=== PATIENT | female | born 2005 | race Two or more races ===

== ENCOUNTER 2025-02-13 06:17 | Emergency (ER) | payer MEDICAID, SELFPAY ==
[2025-02-13 06:18] VITALS: BMI 38.6
[2025-02-13 06:22] VITALS: BP 139/81; PULSE 57; RESP 16; TEMP 36.6; O2SAT 100
--- NOTE | 2025-02-13 06:35 | EDNOTE_ITS ---
ED Ear RME/HPI General Chief complaint: Ear Stated complaint: BILATERAL EAR PROBLEM Time Seen by Provider: 02/13/25 06:19 Arrival date/time: 02/13/25 06:17 19-year-old female presents to the emergency department today for complaint of bilateral ear pain worse on the left which began this morning. Patient reports that time she had ear pain she was also having abdominal pain she reports abdominal pain has completely resolved now she just has pain in the left ear Limitations: no limitations Related Data Previous Rx's ?Medication ?Instructions ?Recorded hydroxyzine pamoate 25 mg capsule 25 mg PO QID PRN itc marlon #30 caps 01/06/23 ibuprofen 600 mg tablet 600 mg PO TID PRN pain #30 t abs 03/05/23 hydrocodone 5 mg-acetaminophen 325 1 tab PO BID PRN pa in #8 tabs 10/30/23 mg tablet ibuprofen 800 mg tablet 800 mg PO TID PRN pain #30 t abs 10/30/23 Allergies Allergy/AdvReac Type Severity Reaction Status Date / Time diphenhydramine (From Allergy Severe Rash Verified 02/13/25 06:18 Benadryl) Review of Systems Review of Systems Systems Reviewed: All systems reviewed, normal except as documented Constitutional Constitutional: Reports system reviewed and no additional complaints, except as documented, Denies fever(s) and Denies headache(s) Eyes Eyes: Reports system reviewed and no additional complaints, except as documented and Denies blurry vision ENT Ears, Nose, Mouth, and Throat: Reports system reviewed and no additional complaints, except as documented, Reports otalgia, Denies headache(s), Denies nasal congestion and Denies nasal discharge Cardiovascular Cardiovascular: Reports system reviewed and no additional complaints, except as documented, Denies chest pain and Denies dyspnea Respiratory Respiratory: Reports system reviewed and no additional complaints, except as documented, Denies chest congestion, Denies cough and Denies dyspnea Gastrointestinal Gastrointestinal: Reports system reviewed and no additional complaints, except as documented and Denies abdominal pain Integumentary/Breasts Skin/Breast: Reports system reviewed and no additional complaints, except as documented and Denies rash Neurologic Neurologic: Reports system reviewed and no additional complaints, except as documented, Reports as per HPI and Denies headache(s) Past Medical History Past Medical History CARDIAC: Negative Congestive Heart Failure RESPIRATORY: Negative Chronic Obstructive Pulmonary Disease (COPD) GENITOURINARY: Negative Renal Disease ENDOCRINE: Negative Diabetes Mellitus Type 1 or Diabetes Mellitus Type 2 Social History SMOKING STATUS: Never smoker SUBSTANCE USE: does not use ED Exam General Limitations: Present no limitations General appearance: Present alert and in no apparent distress Head Head exam: Present atraumatic, normocephalic and normal inspection Eye Eye exam: Present normal appearance, PERRL and EOMI ENT ENT exam: Present mucous membranes moist and other (Bilateral cerumen impaction worse on the left) Neck Neck exam: Present normal inspection, full ROM and trachea midline Chest Chest inspection: Present normal inspection and symmetric chest wall rise Respiratory Respiratory exam: Present normal lung sounds bilaterally Cardiovascular Cardiovascular exam: Present regular rate, normal rhythm and normal heart sounds Abdominal Exam Abdominal exam: Present soft and normal bowel sounds; Absent distention, tenderness, guarding, rebound, rigidity, Seay's sign, Rovsing's sign or tenderness at McBurney's Point Abdominal tenderness: Absent RUQ or RLQ Extremities Exam Extremities exam: Present normal inspection and full ROM Back Exam Back exam: Present normal inspection and full ROM Neurological Exam Neurological exam: Present alert, oriented X3 and CN II-XII intact Psychiatric Psychiatric exam: Present normal affect and normal mood Skin Skin exam: Present warm, dry, intact and normal color Course Quality Measures none Vital Signs Vital signs: Vital Signs Temperature 97.8 F 02/13/25 06:22 Pulse Rate 57 L 02/13/25 06:22 Respiratory Rate 16 02/13/25 06:22 Blood Pressure 139/81 H 02/13/25 06:22 Pulse Oximetry (%) 100 02/13/25 06:22 Oxygen Delivery Method Room Air 02/13/25 06:22 O2 saturation 100% on room air with normal limits Procedures -ED Ear Wax Removal Both Ears: Results: Re-examined: cerumen removed completely TM Examination: TM(s) intact, normal appearance Ear Canal Exam: atraumatic Patient Tolerated Procedure: well Complications: no problems Technique: ear canal irrigated Ear Patient data External records reviewed:: [facility] previous records Clinical information provided by:: patient Social determinants that could affect healthcare access:: none Patient has the following chronic illnesses:: None How is presenting disease/condition affected by chronic disease/condition?: no chronic disease Evaluation data The following diagnostics were reviewed and interpreted by me:: other (specify) Lab and/or radiology exams considered but not ordered:: Consider not ordered Interpretation Summary: N/A Medications / Prescriptions Medications or Prescriptions considered but not ordered:: Given Medication administrations:: Given Consultations Consultation(s) initiated? (list below): No Diagnosis Ear Differential Diagnosis: otitis externa, otitis media, foreign body in ear and cerumen impaction Most likely diagnosis given after review of the tests above:: Cerumen infection bilateral Admission Indicated Admission indicated?: not indicated Admission Request Was there a request for admission?: No Disposition Plan Disposition Plan: Discharge Discharge Attestation Discharge Attestation: The patient and all family members were given an opportunity to ask questions and understood the discharge instructions. Discharge instructions specifically effects, indications for sooner follow up or return to the emergency department, and the expected course of current diagnosis. Patient condition: Stable Medical Decision Making MDM Narrative MDM Narrative: 19-year-old female presents to the emergency department today for complaint of bilateral ear pain worse on the left which began this morning. Patient reports that time she had ear pain she was also having abdominal pain she reports abdominal pain has completely resolved now she just has pain in the left ear On exam patient has bilateral cerumen impaction worse on the left Bilateral ears irrigated by myself copious amounts of earwax was removed patient reports I can now hear patient reports that she feels better At time of discharge patient reports no abdominal pain Patient discharged home in no distress to follow-up with primary care doctor in the next 24 to 48 hours and for any worsening symptoms to return to the ER immediately Differential Diagnosis Differential Diagnosis: Otitis media, otitis externa, eustachian tube dysfunction Medical Records Medical records reviewed: Yes I reviewed the patient's medical records. Discharge Plan Plan Patient Disposition: HOME (Self Care) Discharge Disposition comment: Stable Prescriptions/Referrals Prescriptions/Med Rec: No Action hydroxyzine pamoate 25 mg capsule 25 mg PO QID PRN (Reason: itching) Qty: 30 0RF ibuprofen 600 mg tablet 600 mg PO TID PRN (Reason: pain) Qty: 30 0RF ibuprofen 800 mg tablet 800 mg PO TID PRN (Reason: pain) Qty: 30 0RF hydrocodone-acetaminophen 5-325 mg tablet 1 tab PO BID MDD 10 PRN (Reason: pain) Qty: 8 0RF Problem List Clinical Impression: Bilateral impacted cerumen Patient/Caregiver Discharge Instructions Education Materials: Impacted Earwax Additional Instructions: Please follow up with your primary care doctor in the next 24-48hrs for any worsening symptoms return here immediately Print Language: Polish Stand Alone Forms: Aminata Award Info., Work/School Release, Patient Portal Info Letter PA/VARNISH SUPERVISOR Supervising Physician PA/VARNISH SUPERVISOR Supervising Physician: Dr. león
== END 2025-02-13 06:41 | disposition home or self-care (01) ==
LOC: SERX 06:41
PROVIDERS: Emergency Provider Emergency Medicine
DX: H61.23 Impacted cerumen, bilateral (principal)
CPT/HCPCS: 69209; 99283

== ENCOUNTER 2025-05-06 11:12 | Emergency (ER) | payer MEDICAID, SELFPAY ==
[2025-05-06] VITALS (8 sets, daily range): BP systolic 116–133; BP diastolic 53–77; PULSE 60–70; RESP 16–19; TEMP 36.4–37; O2SAT 95–100; BMI 42.9
--- NOTE | 2025-05-06 11:30 | XR_ITS ---
Examination: Abdomen sonogram, Limited Date and time of exam: May 06, 2025 1136 hours INDICATIONS: Right upper abdominal pain beginning 2:00 AM this morning Technique: Real-time adan scale transabdominal sonographic images of the upper abdomen obtained. Findings: Gallbladder sludge, negative for gallstones, normal gallbladder wall. Normal common bile duct 0.4 cm Pancreatic head 3.2 cm Liver 14.4 cm mildly lobular contour no focal liver lesions Normal hepatopedal portal venous flow Patent IVC IMPRESSION: Gallbladder sludge, negative for cholelithiasis, negative for cholecystitis Suspect primary hepatocellular disease
--- NOTE | 2025-05-06 11:31 | PD.EDRME ---
Rapid Medical Screening Exam RME Arrival date/time: 05/06/25 11:12 19-year-old female with no known medical history presents to the emergency room with a chief complaint of bilateral pelvic 10 out of 10 pain as well as some right upper quadrant abdominal tenderness x 2 days I have greeted and performed a focused initial assessment of this patient. A comprehensive ED assessment and evaluation of the patient, analysis of all test results, and completion of the medical decision making process will be conducted by additional ED providers. Chief Complaint: Abdominal Pain Time Seen by Provider: 05/06/25 11:21 Vital signs: Vital Signs Temperature 98.2 F 05/06/25 11:22 Pulse Rate 70 05/06/25 11:22 Respiratory Rate 18 05/06/25 11:22 Blood Pressure 127/73 05/06/25 11:22 Pulse Oximetry (%) 98 05/06/25 11:22 Oxygen Delivery Method Room Air 05/06/25 11:22 Vital signs reviewed by provider: Yes
[2025-05-06 11:55] LABS: Basophils # (Auto) 0.0 Thou/mm3 (0.0-0.2); Basophils % (Auto) 0 % (0-2.5); Eosinophils # (Auto) 0.1 Thou/mm3 (0.0-0.5); Eosinophils % (Auto) 1 % (0-10); Hematocrit 37.1 % (36.0-46.0); Hemoglobin 12.2 g/dL (12.0-16.0); Immature Granulocytes Auto 0.03 Thou/mm3 (0.00-0.00); Lymphocytes # (Auto) 2.0 Thou/mm3 (1.0-4.8); Lymphocytes % (Auto) 18 % (10-50); Mean Corpuscular HGB Conc 32.9 g/dl (31.0-37.0); Mean Corpuscular Hemoglobin 28.4 pg (25.0-35.0); Mean Corpuscular Volume 86 fL (80-100); Monocytes # (Auto) 0.6 Thou/mm3 (0.0-0.8); Monocytes % (Auto) 6 % (0-12); Neutrophils # (Auto) 8.3 Thou/mm3 (1.8-7.7); Neutrophils % (Auto) 75 % (37-80); Nucleated Red Blood Cell # 0.00 Thou/mm3 (0.00-0.00); Nucleated Red Blood Cell % 0 /100 WBC (0); Platelet Count 273 Thou/mm3 (140-440); RDW Standard Deviation 43.9 fL (36.4-46.3); Red Blood Count 4.30 Miln/mm3 (4.00-5.20); White Blood Count 11.0 Thou/mm3 (3.6-11.0)
[2025-05-06 12:11] LABS: Alanine Aminotransferase 27 U/L (10-49); Albumin, Serum 4.5 gm/dL (3.5-5.0); Albumin/Globulin Ratio 1.6 (1.2-2.2); Alkaline Phosphatase 83 U/L (46-116); Anion Gap 10 (7-16); Aspartate Amino Transferase 23 U/L (0-34); BUN/Creatinine Ratio 15 Ratio (12-20); Bilirubin,Total 1.9 mg/dL (0.3-1.2); Blood Urea Nitrogen 12 mg/dL (9-23); Calcium 9.7 mg/dL (8.3-10.6); Calcium (Corrected) 9.7 mg/dL (8.5-10.1); Carbon Dioxide 26.9 mMol/L (20.0-31.0); Chloride 105 mMol/L (98-107); Creatinine (Component) 0.8 mg/dL (0.6-1.3); Estimated Creatinine Clearance 137.3 mL/min (>60); Globulin 2.8 gm/dL (2.3-3.5); Glucose 81 mg/dL (74-106); Lipase 27 U/L (12-53); Osmolality,Calculated 281 (275-295); Potassium 4.6 mMol/L (3.4-5.1); Sodium 142 mMol/L (136-145); Total Protein 7.3 gm/dL (5.7-8.2); eGFR > 60 See Note
[2025-05-06 12:23] LABS: Collection Type, Urine Clean Catch
[2025-05-06 12:44] LABS: Bacteria,Urine Rare; Bilirubin,Urine Negative (Negative); Blood,Urine Negative (Negative); Clarity,Urine Clear (Clear/Hazy); Color,Urine Yellow (Lt Yel-Yel); Glucose, Urine Negative (Negative); Ketones,Urine 2+ (Negative); Leukocyte Esterase,Urine Negative (Negative); Nitrite,Urine Negative (Negative); PH,Urine 6.0 (5.0-7.0); Protein,Urine Trace (Neg - Trace); RBC,Urine 2 /hpf (0-3); Specific Gravity,Urine 1.034 (1.001-1.035); Squamous Epithelial Cell,Urine 3 /hpf (0-5); Urobilinogen,Urine Negative mg/dL (0.0-1.0); WBC,Urine 2 /hpf (0-5)
[2025-05-06 12:50] LABS: HCG Qualitative,Urine Negative
--- NOTE | 2025-05-06 13:37 | EDNOTE_ITS ---
ED Abdominal Pain RME/HPI General Chief Complaint: Abdominal Pain Stated complaint: pelvic pain and right shoulder pain since 2am Time seen by provider: 05/06/25 11:21 Arrival date/time: 05/06/25 11:12 RME / HPI RME / HPI narrative: 05/06/25 11:12 19-year-old female with no known medical history presents to the emergency room with a chief complaint of bilateral pelvic 10 out of 10 pain as well as some right upper quadrant abdominal tenderness x 2 days I have greeted and performed a focused initial assessment of this patient. A comprehensive ED assessment and evaluation of the patient, analysis of all test results, and completion of the medical decision making process will be conducted by additional ED providers. DR. MATHEW TIAN ED EVALUATION 19 year old female with no stated medical history presents to the ED for evaluation of abdominal pain beginning intermittently yesterday evening and worsening at 02:00 AM today. Described as sharp stabbing in sensation that is located most across lower abdomen, rating as moderate. Reportedly went to sleep and woke up at 08:00AM with the pain radiating to her right upper quadrant and right shoulder which she described as a soreness sensation. Denies associated nausea or vomiting though states since arriving to the ED she is beginning to feel nauseated. Denies fevers, chills, chest pain, cough, shortness of breath, diarrhea, constipation, or urinary symptoms. LMP 04/14/2025, denies . Related Data Previous Rx's ?Medication ?Instructions ?Recorded hydroxyzine pamoate 25 mg capsule 25 mg PO QID PRN itc marlon #30 caps 01/06/23 ibuprofen 600 mg tablet 600 mg PO TID PRN pain #30 t abs 03/05/23 hydrocodone 5 mg-acetaminophen 325 1 tab PO BID PRN pa in #8 tabs 10/30/23 mg tablet ibuprofen 800 mg tablet 800 mg PO TID PRN pain #30 t abs 10/30/23 acetaminophen 300 mg-codeine 30 mg 2 tab PO Q8H PRN pa in #20 tabs 05/06/25 tablet ondansetron 4 mg disintegrating 4 mg PO TID PRN nausea and 05/06/25 tablet vomiting 30 days #10 tabs Allergies Allergy/AdvReac Type Severity Reaction Status Date / Time diphenhydramine (From Allergy Severe Rash Verified 05/06/25 11:15 Benadryl) Review of Systems Review of Systems Systems Reviewed: All systems reviewed, normal except as documented Past Medical History Past Medical History CARDIAC: Negative Congestive Heart Failure RESPIRATORY: Negative Chronic Obstructive Pulmonary Disease (COPD) GENITOURINARY: Negative Renal Disease ENDOCRINE: Negative Diabetes Mellitus Type 1 or Diabetes Mellitus Type 2 Social History SMOKING STATUS: Never smoker SUBSTANCE USE: does not use ED Exam Narrative Physical exam: See MDM Course Quality Measures none Orders Category Date Time Status CT Screening NOW Care 05/06/25 13:[address] abdomen pelvis w con Stat Exams 05/06/25 13:40 Completed US gall bladder Stat Exams 05/06/25 11:30 Completed US pelvic complete Stat Exams 05/06/25 14:57 Completed US transvaginal Stat Exams 05/06/25 17:59 Completed CBC Stat Lab 05/06/25 11:36 Completed CMP [Comprehensive Metabolic Panel] Stat Lab 05/06/25 11:36 Completed Chlamydia/GC/TV - PCR Stat Lab 05/06/25 12:00 Completed HCG Qualitative,Urine Stat Lab 05/06/25 12:00 Completed Lipase Stat Lab 05/06/25 11:36 Completed UA [Urinalysis] Stat Lab 05/06/25 12:00 Completed Urine Culture Stat Lab 05/06/25 12:00 Received Acetaminophen Ivpb [Ofirmev Inj] Med 05/06/25 16:24 Discontinued 1,000 mg in 100 ml IV X1 Azithromycin Po [Zithromax PO] Med 05/06/25 21:08 Discontinued 1,000 mg PO X1 ONE Fluconazole [Diflucan] Med 05/06/25 21:10 Discontinued 200 mg PO X1 ONE HYDROmorphone INJ [Dilaudid Inj] Med 05/06/25 13:45 Discontinued 0.5 mg IVP Q30MIN PRN Ketorolac Inj [Toradol Inj] Med 05/06/25 16:24 Discontinued 15 mg IVP X1 ONE Ondansetron Inj [Zofran Inj] Med 05/06/25 13:42 Discontinued 4 mg IVP X1 ONE Sodium Chloride 0.9% 1000 ml [Ns] 1,000 ml Med 05/06/25 13:42 Discontinued IV 999 mls/hr cefTRIAXone/D5w 1gm IV premix [Rocephin/D5w 1gm IV Med 05/06/25 21:07 Discontinued premix] 1 gm in 50 ml IV X1 metroNIDAZOLE [Flagyl] Med 05/06/25 21:09 Discontinued 2,000 mg PO X1 ONE Vital Signs Vital signs: Vital Signs Temperature 98.2 F 05/06/25 11:22 Pulse Rate 70 05/06/25 11:22 Respiratory Rate 18 05/06/25 11:22 Blood Pressure 127/73 05/06/25 11:22 Pulse Oximetry (%) 98 05/06/25 11:22 Oxygen Delivery Method Room Air 05/06/25 11:22 Pulse ox is 98% on room air which is adequate. Abdominal Pain MDM MDM Narrative MDM Narrative:: This section includes all my notes and documentations, including HPI, PE, and ED course. Leandro Marina MD ? HPI: 19 year old female with no stated medical history presents to the ED for evaluation of abdominal pain beginning intermittently yesterday evening and worsening at 02:00 AM today. Described as sharp stabbing in sensation that is located most across lower abdomen, rating as moderate. Reportedly went to sleep and woke up at 08:00AM with the pain radiating to her right upper quadrant and r ight shoulder which she described as a soreness sensation. Denies associated nausea or vomiting though states since arriving to the ED she is beginning to feel nauseated. Denies fevers, chills, chest pain, cough, shortness of breath, diarrhea, constipation, or urinary symptoms. LMP 04/14/2025, denies . ? ROS: All negative except as documented in HPI. ? PE: GENERAL APPEARANCE:? alert and oriented x 4, well-developed, well-nourished, no acute distress VITALS: All vitals were reviewed and the pulse ox is % on room air, which is normal according to my interpretation. HEENT: Normocephalic, atraumatic; pupils equal, round, reactive to light; EOMI; mucous membranes pink, moist; oropharynx clear NECK: Supple LUNGS: CTABL; no wheezes, no rales, no rhonchi HEART: Regular rate, regular rhythm; normal S1, S2; no murmurs ABDOMEN: non distended; normal BS;? soft, right lower quadrant TTP with guarding, mild rebound tenderness, right upper quadrant TTP with + Seay's sign and voluntary guarding; no masses, no organomegaly, no hernia?? BACK:? no CVA tenderness EXTREMITIES:? atraumatic; no edema NEUROLOGIC: awake; alert and oriented x4; cranial nerves II-XII grossly intact; no focal sensory or motor deficits PSYCHIATRIC:? appropriate mood and affect SKIN: warm, dry, normal color; no rashes ? Reassessment at 1620h, patient is still complaining of pain. Last received 0.5mg Dilaudid at 14:13h. Ordered an additional dose of Dilaudid. Patient reports she was diagnosed with a large right ovarian cyst 2 months ago. Reassessment at 1800h, patient is still complaining of pain. Will order transvaginal . ultrasound I reviewed all diagnostic test results: My review of the gallbladder ultrasound is: Gallbladder sludge, negative for cholelithiasis, negative for cholecystitis. My review of the abdomen/pelvis CT is: Anteverted uterus, with fluid in the pelvis on the right side suspicious for inflammatory change in the pelvis, recommend pelvic sonography follow-up. My review of the pelvic ultrasound report is: Free fluid around the uterus. Blood tests and urine test: CBC and CMP within normal limits ? At this point, diagnoses include: Abdominal pain ? Treatment here included: Zofran, IV fluids, Dilaudid, Toradol, and Tylenol ? 1800: Patient signed out to Dr. Spangler pending US and final disposition. Patient data External records reviewed:: [facility] previous records Clinical information provided by:: patient Social determinants that could affect healthcare access:: none Patient has the following chronic illnesses:: None reported How is presenting disease/condition affected by chronic disease/condition?: no chronic disease Evaluation data The following diagnostics were reviewed and interpreted by me:: lab results and radiology exam(s) Lab and/or radiology exams considered but not ordered:: None Interpretation Summary: See MDM Medications / Prescriptions Medications or Prescriptions considered but not ordered:: None Medication administrations:: Medication Administration History Discontinued Medications Azithromycin (Azithromycin 250 Mg Tablet) 1,000 mg PO X1 ONE Stop: 05/06/25 21:09 Last Admin: 05/06/25 21:31 Dose: 1,000 mg Documented By: EPHRAIM Fluconazole (Fluconazole 100 Mg Tablet) 200 mg PO X1 ONE Stop: 05/06/25 21:11 Last Admin: 05/06/25 21:46 Dose: 200 mg Documented By: EPHRAIM Hydromorphone HCl (Hydromorphone Inj 2 Mg/Ml Vial) 0.5 mg IVP Q30MIN PRN PRN Reason: PAIN Stop: 05/11/25 13:44 Last Admin: 05/06/25 19:16 Dose: 0.5 mg Documented By: Admin: 05/06/25 17:40 Dose: 0.5 mg Documented By: Admin: 05/06/25 16:31 Dose: 0.5 mg Documented By: Admin: 05/06/25 14:13 Dose: 0.5 mg Documented By: ER Sodium Chloride (Ns) 1,000 mls @ 999 mls/hr IV .Q1H1M ONE Stop: 05/06/25 14:42 Last Infusion: 05/06/25 15:15 Dose: Infused Documented By: Admin: 05/06/25 14:12 Dose: 999 mls/hr Documented By: ER Acetaminophen (Ofirmev Inj) 1,000 mg in 100 mls @ 250 mls/hr IV X1 ONE Stop: 05/06/25 16:47 Last Infusion: 05/06/25 17:05 Dose: Infused Documented By: Admin: 05/06/25 16:40 Dose: 250 mls/hr Documented By: ER Ceftriaxone Sodium/Dextrose (Rocephin/D5w 1gm Iv Premix) 1 gm in 50 mls @ 100 mls/hr IV X1 ONE Stop: 05/06/25 21:36 Last Infusion: 05/06/25 22:00 Dose: Infused Documented By: Admin: 05/06/25 21:29 Dose: 100 mls/hr Documented By: CB Ketorolac Tromethamine (Ketorolac Inj 30 Mg/Ml Vial) 15 mg IVP X1 ONE Stop: 05/06/25 16:25 Last Admin: 05/06/25 16:38 Dose: 15 mg Documented By: ER Metronidazole (Metronidazole 250 Mg Tablet) 2,000 mg PO X1 ONE Stop: 05/06/25 21:10 Last Admin: 05/06/25 21:45 Dose: 2,000 mg Documented By: CB Ondansetron HCl (Ondansetron Inj 2 Mg/Ml Inj 2 Ml) 4 mg IVP X1 ONE; Protocol Stop: 05/06/25 13:43 Last Admin: 05/06/25 14:12 Dose: 4 mg Documented By: ER See MDM Consultations Consultation(s) initiated? (list below): No Diagnosis Differential diagnosis abdominal pain: abdominal pain, acute appendicitis, calculus of kidney, constipation, endometriosis and gastroenteritis Most likely diagnosis given after review of the tests above:: Abdominal pain Admission Indicated Admission indicated?: not indicated Explain why admission is indicated or not indicated:: Signed out pending final disposition. Admission Request Was there a request for admission?: No Disposition Plan Disposition Plan: other (specify) (Signed out to Dr. Spangler ) Discharge Plan Plan Patient Disposition: HOME (Self Care) Prescriptions/Referrals Prescriptions/Med Rec: New acetaminophen-codeine 300-30 mg tablet 2 tab PO Q8H MDD 6 PRN (Reason: pain) Qty: 20 0RF ondansetron 4 mg tablet,disintegrating 4 mg PO TID PRN (Reason: nausea and vomiting) 30 Days Qty: 10 0RF No Action hydroxyzine pamoate 25 mg capsule 25 mg PO QID PRN (Reason: itching) Qty: 30 0RF ibuprofen 600 mg tablet 600 mg PO TID PRN (Reason: pain) Qty: 30 0RF ibuprofen 800 mg tablet 800 mg PO TID PRN (Reason: pain) Qty: 30 0RF hydrocodone-acetaminophen 5-325 mg tablet 1 tab PO BID MDD 10 PRN (Reason: pain) Qty: 8 0RF Referrals: Brady Maharaj MD [Primary Care Provider, Family Practice] - In 1 week Problem List Clinical Impression: PID (pelvic inflammatory disease) Patient/Caregiver Discharge Instructions Discharge Activity: activity as tolerated Education Materials: ED Pelvic Inflammatory Disease Additional Instructions: Discharge Instructions from Dr. Spangler printed for you: 1. After extensive evaluation, you were diagnosed and treated for PID. See attached handout. 2. Because you were given all the necessary antibiotics here, you don't have to take any more outside. 3. Tylenol with codeine for severe pain. 4. For good hydration, increase oral fluid and maintain clear urine. If dark or yellow, increase oral fluid. Zofran for nausea/vomiting. 5. See a private doctor on 05/07/2025 for recheck and further care Ask to review all test results and official radiology reports, to make sure you receive all necessary follow-ups and monitoring. Ask for help until you are completely better. If needed, ask for a referral to see automatic spooler operator. No sexual activity until cleared by a doctor taking care of you. 6. Seek immediate medical care with worsening or with any concerns. Print Language: Congolese Stand Alone Forms: Aminata Award Info., Patient Portal Info Letter
--- NOTE | 2025-05-06 13:40 | XR_ITS ---
Examination: CT abdomen with intravenous contrast CT pelvis with intravenous contrast 2-D coronal reconstructions 2-D sagittal reconstructions Date and time of exam:May 06, 2025 at 1424 hours INDICATIONS: Right lower abdominal pain and nausea beginning this morning. CTDI: vol (mGy) 13 DLP: (mGycm) 761 Technique: Multiple axial sections of the abdomen and pelvis have been obtained. 64 slice high-resolution scanner used. 3 mm axial sections have been obtained, post intravenous injection 60 cc [id number] 2-D sagittal, coronal reconstructions obtained. Low dose protocols were performed. One or more of the following dose reduction techniques were used; automated exposure control, adjustment of the mA and/or KV according to patient size, use of iterative reconstruction technique. Findings: No focal liver or splenic lesions No gallstones No pancreatic or adrenal mass Mild renal scar formation Aorta normal size Normal appendix, coronal image 70 There is fluid in the pelvis on the right side There are fluid distended small bowel loops Anteverted uterus Urinary bladder intact IMPRESSION: Normal appendix Anteverted uterus, with fluid in the pelvis on the right side suspicious for inflammatory change in the pelvis, recommend pelvic sonography follow-up Mild fluid distended small bowel loops, consider ileus enteritis
[2025-05-06] MEDS: SODIUM CHLORIDE 0.9% 1000 ML 1,000 ML 999 ML IV (14:12)
[2025-05-06] MEDS: ONDANSETRON INJ 2 MG/ML INJ 2 ML 4 MG IVP (14:12)
[2025-05-06] MEDS: HYDROmorphone INJ 2 MG/ML VIAL 0.5 MG IVP ×4 (14:13→19:16)
--- NOTE | 2025-05-06 14:57 | XR_ITS ---
Examination: Pelvic ultrasound, transabdominal, complete Technique: Transabdominal ultrasound of the pelvis performed using grayscale imaging Date and time of exam: May 06, 2025 1523 hours INDICATIONS: Pelvic pain beginning 2:00 AM today FINDINGS: Uterus 7.3 cm no uterine mass or intrauterine gestation Free fluid around the uterus Ovaries obscured by bowel gas IMPRESSION: Free fluid around the uterus, consider pelvic inflammatory disease
[2025-05-06] MEDS: KETOROLAC INJ 30 MG/ML VIAL 15 MG IVP (16:38)
[2025-05-06] MEDS: ACETAMINOPHEN IVPB 1,000 MG/100 ML VIAL 250 MG IV (16:40)
--- NOTE | 2025-05-06 17:59 | XR_ITS ---
Examination: Transvaginal ultrasound of the pelvis, complete Technique: Transvaginal sonographic images pelvis performed using adan scale imaging Exam date and time: May 06, 2025, 2002 hrs. Indications: Right pelvic pain beginning to hand today, suspicious for inflammatory change in the pelvis on CT pelvis study today Findings: Uterus 7.7 cm free fluid anterior to the uterus and in the cul-de-sac Right ovary 3.5 cm arterial flow. Left ovary 4.0 cm arterial flow Free fluid in both adnexal regions Endometrial stripe 1 7 cm Impression: Free fluid anterior to the uterus, in the cul-de-sac and in the adnexal regions, consider pelvic inflammatory disease.
--- NOTE | 2025-05-06 18:13 | PD.EDADDENDU ---
Emergency Room Addendum <Maile Maharaj - Last Filed: 05/06/25 21:15> Addendum Narrative: I took over the care from Dr. Marina at 6 PM on 05/06/2025, see his notes for complete H&P and ED course. I reviewed all diagnostic test results. My review of the transvaginal ultrasound report is free fluid anterior to the uterus, in the cul-de-sac and in the adnexal regions. At this point, diagnoses include: Pelvic inflammatory disease Treatment here from me included: Azithromycin Rocephin Flagyl Diflucan Based on my best medical judgment, made decision no further evaluation or treatment indicated at this time. Patient understands and agrees to the discharge instructions customized and printed, see below. Discharge Instructions from Dr. Spangler printed for you: 1. After extensive evaluation, you were diagnosed and treated for PID. See attached handout. 2. Because you were given all the necessary antibiotics here, you don't have to take any more outside. 3. Tylenol with codeine for severe pain. 4. For good hydration, increase oral fluid and maintain clear urine. If dark or yellow, increase oral fluid. Zofran for nausea/vomiting. 5. See a private doctor on 05/07/2025 for recheck and further care Ask to review all test results and official radiology reports, to make sure you receive all necessary follow-ups and monitoring. Ask for help until you are completely better. If needed, ask for a referral to see fire protection designer. No sexual activity until cleared by a doctor taking care of you. 6. Seek immediate medical care with worsening or with any concerns. Paul Spangler MD <Paul Spangler MD - Last Filed: 05/06/25 22:11> Addendum Narrative: I took over the care from Dr. Marina at 6 PM on 05/06/2025, see his notes for complete H&P and ED course. I reviewed all diagnostic test results. Diagnoses include: Pelvic inflammatory disease Treatment here from [facility] included: Azithromycin 1000 mg orally Rocephin 1 g IV Flagyl 2000 g orally Diflucan 200 mg orally She felt much better. Recommended outpatient management. Based on my best medical judgment, made decision no further evaluation or treatment indicated at this time. Patient understands and agrees to the discharge instructions customized and printed, see below. Discharge Instructions from Dr. Spangler printed for you: 1. After extensive evaluation, you were diagnosed and treated for PID. See attached handout. 2. Because you were given all the necessary antibiotics here, you don't have to take any more outside. 3. Tylenol with codeine for severe pain. 4. For good hydration, increase oral fluid and maintain clear urine. If dark or yellow, increase oral fluid. Zofran for nausea/vomiting. 5. See a private doctor on 05/07/2025 for recheck and further care Ask to review all test results and official radiology reports, to make sure you receive all necessary follow-ups and monitoring. Ask for help until you are completely better. If needed, ask for a referral to see fire protection designer. No sexual activity until cleared by a doctor taking care of you. 6. Seek immediate medical care with worsening or with any concerns. Paul Spangler MD
[2025-05-06] MEDS: cefTRIAXone/D5w 1gm IV premix 1 GM/50 ML BAG IV (21:29)
[2025-05-06] MEDS: AZITHROMYCIN 250 MG TABLET 1000 MG PO (21:31)
[2025-05-06] MEDS: FLUCONAZOLE 100 MG TABLET 200 MG PO (21:46)
[2025-05-07 09:34] LABS: Chlamydia trachomatis PCR Negative (Not Detect); Neisseria Gonorrhoeae DNA PCR Negative (Not Detect); Trichomonas Negative (Negative)
== END 2025-05-06 22:01 | disposition home or self-care (01) ==
PROVIDERS: Emergency Medicine; Nurse Practitioner Family; Emergency Provider Emergency Medicine; PCP Family Medicine
DX: N73.9 Female pelvic inflammatory disease, unspecified (principal); N85.4 Malposition of uterus; N83.201 Unspecified ovarian cyst, right side; R11.2 Nausea with vomiting, unspecified
CPT/HCPCS: 36415; 74177; 76705; 76830; 76856; 80053; 81001; 81025; 83690; 85025; 87086; 87491; 87591; 87661; 96361; 96365; 96375; 99284; A4649; J0131; J0696; J1171; J1885; J2405; J7030; Q9967; A9270

== ENCOUNTER 2025-05-10 18:20 | Emergency (ER) | payer MEDICAID, SELFPAY ==
[2025-05-10 18:21] VITALS: BMI 39.4
[2025-05-10 19:49] VITALS: BP 127/73; PULSE 86; RESP 18; TEMP 36.7; O2SAT 98
--- NOTE | 2025-05-10 20:01 | XR_ITS ---
Examination: Pelvic ultrasound, transabdominal, complete Technique: Transabdominal ultrasound of the pelvis performed using grayscale imaging Date and time of exam: May 10, 2025, 2134 hrs. Indications: Pelvic pain beginning 5 days ago. Findings: Uterus 6.5 cm endometrial stripe 0.6 cm No uterine mass or intrauterine gestation Ovaries obscured by bowel gas. Impression: No uterine mass or intrauterine gestation
--- NOTE | 2025-05-10 20:01 | PD.EDRME ---
Rapid Medical Screening Exam [facility] Arrival date/time: 05/10/25 18:20 19F with no significant PMH presents to ED with continued pelvic pain. Patient was here several days ago with diagnosis of PID, though GC serology came back negative. Patient has also had a lot of clear vaginal discharge. Patient was not discharged with antibiotics. Chief Complaint: Abdominal Pain Vital signs: Vital Signs Temperature 98.1 F 05/10/25 19:49 Pulse Rate 86 05/10/25 19:49 Respiratory Rate 18 05/10/25 19:49 Blood Pressure 127/73 05/10/25 19:49 Pulse Oximetry (%) 98 05/10/25 19:49 Oxygen Delivery Method Room Air 05/10/25 19:49
[2025-05-10] MEDS: KETOROLAC INJ 60 MG/2 ML VIAL IM (20:29)
--- NOTE | 2025-05-10 22:29 | EDNOTE_ITS ---
ED Abdominal Pain RME/HPI General Chief Complaint: Abdominal Pain Stated complaint: LOWER ABD SHARP PAIN Arrival date/time: 05/10/25 18:20 RME / HPI RME / HPI narrative: 05/10/25 18:20 19F with no significant PMH presents to ED with continued pelvic pain. Patient was here several days ago with diagnosis of PID, though GC serology came back negative. Patient has also had a lot of clear vaginal discharge. Patient was not discharged with antibiotics. DR. 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 Transvaginal US demonstrated free fluid anterior to uterus and in the cul-de-sac. There has been no definitive fevers, chills, although nausea without ongoing emesis. No urinary frequency, urgency, or dysuria. PMH: ovarian cystic disease. PSHx: No previous abdominal surgeries. Allergies: Benadryl and Bactrim. Social Hx: Apparently vapes, but no alcohol or illicit drug abuse. Related Data Previous Rx's ?Medication ?Instructions ?Recorded hydroxyzine pamoate 25 mg capsule 25 mg PO QID PRN itc marlon #30 caps 01/06/23 ibuprofen 600 mg tablet 600 mg PO TID PRN pain #30 t abs 03/05/23 hydrocodone 5 mg-acetaminophen 325 1 tab PO BID PRN pa in #8 tabs 10/30/23 mg tablet ibuprofen 800 mg tablet 800 mg PO TID PRN pain #30 t abs 10/30/23 acetaminophen 300 mg-codeine 30 mg 2 tab PO Q8H PRN pa in #20 tabs 05/06/25 tablet ondansetron 4 mg disintegrating 4 mg PO TID PRN nausea and 05/06/25 tablet vomiting 30 days #10 tabs Allergies Allergy/AdvReac Type Severity Reaction Status Date / Time diphenhydramine (From Allergy Severe Rash Verified 05/10/25 18:20 Benadryl) Review of Systems Review of Systems Systems Reviewed: All systems reviewed, normal except as documented Past Medical History Past Medical History REPRODUCTIVE: Positive Pelvic Inflammatory Disease and Hx Polycystic Ovarian Syndrome ED Exam Narrative Physical exam: GEN. APPEARANCE: The patient is alert awake oriented X-3 in no distress, lying down comfortably, does not look ill/toxic. Patient has good eye contact. Patient is cooperative. c/o lower abdominal pain worsened with valsalvar. VITALS: All vitals were reviewed and the pulse ox is 98% on room air which is normal according to my interpretation. HEENT: Normocephalic, atraumatic. Pupils are equal and reactive. Oral mucosa is moist. Patent Nares NECK: Supple, nontender, no thyromegaly, no meningismus, no JVD, no step offs CHEST: Symmetrical, atraumatic, and with equal expansion , Nontender on pa lpation no deformity and no crepitus. CARDIOVASCULAR: Heart regular rhythm no murmur or gallop rub or extra beats. LUNGS: Clear to auscultation bilaterally with symmetrical chest rise. No laboring tachypnea or wheezing. No intercostal subcostal retraction. No rales and no rhonchi. ABDOMEN: Soft, diffuse lower abdominal tenderness, right greater than left lower quadrant with rebound tenderness. There are no abnormal masses palpated. Active and normal bowel sounds. EXTREMITIES: Nontender. No edema. No cyanosis. Patient is able to move all 4 extremities well, with full ROM and good CSM. SKIN: Warm and dry, no jaundice or rashes noted. MUSCULOSKELETAL: No lubar or midline bony tenderness. There is no CVA tenderness. No paraspinal muscle spasm or tenderness. NEURO: Patient is SONG x 4, Cranial nerves II through XII grossly intact. There is no focal neurologic deficits noted. GCS is 15, PNS and [employer] appear grossly intact. PSYCHIATRIC: Patient is in normal mood and affect, cooperative, no SI or HI or hallucinations. Course Quality Measures none Orders Category Date Time Status US pelvic complete Stat Exams 05/10/25 20:01 Completed Beta HCG,Quantitative Stat Lab 05/10/25 23:20 Completed CBC [CBC] Stat Lab 05/10/25 23:20 Completed CMP [Comprehensive Metabolic Panel] Stat Lab 05/10/25 23:20 Completed Urinalysis, C/S if Indicated Stat Lab 05/10/25 23:18 Completed Ketorolac Inj [Toradol Inj] Med 05/10/25 20:01 Discontinued 60 mg IM X1 ONE Vital Signs Vital signs: Vital Signs Temperature 98.1 F 05/10/25 19:49 Pulse Rate 86 05/10/25 19:49 Respiratory Rate 18 05/10/25 19:49 Blood Pressure 127/73 05/10/25 19:49 Pulse Oximetry (%) 98 05/10/25 19:49 Oxygen Delivery Method Room Air 05/10/25 19:49 Abdominal Pain MDM MDM Narrative MDM Narrative:: Scribe Attestation: I, Yandy Acosta, am scribing for and in the presence of Dr. Traylor. Provider Notation: Although this document has been carefully reviewed, there may still be some phonetic and other typographical errors. These errors are purely grammatical due to imperfections in the software program and should not be construed in any way to compromise the substance of the patient's medical care during this visit. 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 Transvaginal US demonstrated free fluid anterior to uterus and in the cul-de-sac. Please see PE findings. Laboratory markers, including CBC and certain chemistries demonstrate normal WBC's with no left shift or associated bandemia. Chemistries are unremarkable. UA with equivocal evidence of UTI. Suspect ruptured ovarian cyst based on amount of free fluid found in previous US performed 2 days ago, and will treat for UTI. Close F/U with FISHING FLOATS ASSEMBLER. Patient data External records reviewed:: [facility] previous records (Reviewed prior ED records from 05/06/25. Patient was seen for PID (pelvic inflammatory disease).) Clinical information provided by:: patient Social determinants that could affect healthcare access:: other (specify) (Vaping) Patient has the following chronic illnesses:: Pelvic Inflammatory Disease and Hx Polycystic Ovarian Syndrome How is presenting disease/condition affected by chronic disease/condition?: exacerbated by Evaluation data The following diagnostics were reviewed and interpreted by me:: lab results and radiology exam(s) Lab and/or radiology exams considered but not ordered:: None Interpretation Summary: RADIOLOGY Pelvis US: Findings: Uterus 6.5 cm endometrial stripe 0.6 cm No uterine mass or intrauterine gestation Ovaries obscured by bowel gas. Impression: No uterine mass or intrauterine gestation Medications / Prescriptions Medications or Prescriptions considered but not ordered:: None Medication administrations:: Medication Administration History Discontinued Medications Ketorolac Tromethamine (Ketorolac Inj 60 Mg/2 Ml Vial) 60 mg IM X1 ONE Stop: 05/10/25 20:02 Last Admin: 05/10/25 20:29 Dose: 60 mg Documented By: ELOINA See above if any Consultations Consultation(s) initiated? (list below): No Diagnosis Differential diagnosis abdominal pain: endometriosis and other (PID, Ovarian cyst) Most likely diagnosis given after review of the tests above:: Pelvic pain, Ruptured ovarian cyst, UTI Admission Indicated Admission indicated?: not indicated Explain why admission is indicated or not indicated:: Patient does not meet admission criteria Admission Request Was there a request for admission?: No Disposition Plan Disposition Plan: Discharge Discharge Attestation Discharge Attestation: The patient and all family members were given an opportunity to ask questions and understood the discharge instructions. Discharge instructions specifically effects, indications for sooner follow up or return to the emergency department, and the expected course of current diagnosis. Patient condition: Stable Discharge Plan Plan Patient Disposition: HOME (Self Care) Discharge Disposition comment: Stable Patient condition on transfer: Stable Prescriptions/Referrals Prescriptions/Med Rec: No Action hydroxyzine pamoate 25 mg capsule 25 mg PO QID PRN (Reason: itching) Qty: 30 0RF ibuprofen 600 mg tablet 600 mg PO TID PRN (Reason: pain) Qty: 30 0RF ibuprofen 800 mg tablet 800 mg PO TID PRN (Reason: pain) Qty: 30 0RF hydrocodone-acetaminophen 5-325 mg tablet 1 tab PO BID MDD 10 PRN (Reason: pain) Qty: 8 0RF acetaminophen-codeine 300-30 mg tablet 2 tab PO Q8H MDD 6 PRN (Reason: pain) Qty: 20 0RF ondansetron 4 mg tablet,disintegrating 4 mg PO TID PRN (Reason: nausea and vomiting) 30 Days Qty: 10 0RF Referrals: No Primary/Family,Physician [Primary Care Provider] - In 1 week Problem List Clinical Impression: Pelvic pain in female, UTI (urinary tract infection), Ovarian cyst rupture Patient/Caregiver Discharge Instructions Discharge Activity: activity as tolerated Other Activity Instructions:: Pelvic rest. Medication as directed. Close [employer]ING FLOATS ASSEMBLER follow-up. Return if worsening Education Materials: ED CYSTITIS Female Adult Print Language: Occitan Stand Alone Forms: Aminata Award Info., Patient Portal Info Letter
[2025-05-10 23:36] LABS: Basophils # (Auto) 0.0 Thou/mm3 (0.0-0.2); Basophils % (Auto) 0 % (0-2.5); Eosinophils # (Auto) 0.2 Thou/mm3 (0.0-0.5); Eosinophils % (Auto) 2 % (0-10); Hematocrit 37.9 % (36.0-46.0); Hemoglobin 12.5 g/dL (12.0-16.0); Immature Granulocytes Auto 0.02 Thou/mm3 (0.00-0.00); Lymphocytes # (Auto) 2.1 Thou/mm3 (1.0-4.8); Lymphocytes % (Auto) 21 % (10-50); Mean Corpuscular HGB Conc 33.0 g/dl (31.0-37.0); Mean Corpuscular Hemoglobin 29.1 pg (25.0-35.0); Mean Corpuscular Volume 88 fL (80-100); Monocytes # (Auto) 0.6 Thou/mm3 (0.0-0.8); Monocytes % (Auto) 6 % (0-12); Neutrophils # (Auto) 7.2 Thou/mm3 (1.8-7.7); Neutrophils % (Auto) 72 % (37-80); Nucleated Red Blood Cell # 0.00 Thou/mm3 (0.00-0.00); Nucleated Red Blood Cell % 0 /100 WBC (0); Platelet Count 290 Thou/mm3 (140-440); RDW Standard Deviation 44.6 fL (36.4-46.3); Red Blood Count 4.29 Miln/mm3 (4.00-5.20); White Blood Count 10.0 Thou/mm3 (3.6-11.0)
[2025-05-10 23:39] LABS: Collection Type, Urine Clean Catch
[2025-05-10 23:52] LABS: Alanine Aminotransferase 21 U/L (10-49); Albumin, Serum 4.6 gm/dL (3.5-5.0); Albumin/Globulin Ratio 1.6 (1.2-2.2); Alkaline Phosphatase 80 U/L (46-116); Anion Gap 9 (7-16); Aspartate Amino Transferase 23 U/L (0-34); BUN/Creatinine Ratio 10 Ratio (12-20); Beta HCG,Quantitative < 1 mIU/mL (<5.0); Bilirubin,Total 1.4 mg/dL (0.3-1.2); Blood Urea Nitrogen 8 mg/dL (9-23); Calcium 10.0 mg/dL (8.3-10.6); Calcium (Corrected) 10.0 mg/dL (8.5-10.1); Carbon Dioxide 27.8 mMol/L (20.0-31.0); Chloride 102 mMol/L (98-107); Creatinine (Component) 0.8 mg/dL (0.6-1.3); Estimated Creatinine Clearance 130.9 mL/min (>60); Globulin 2.9 gm/dL (2.3-3.5); Glucose 91 mg/dL (74-106); Osmolality,Calculated 275 (275-295); Potassium 4.6 mMol/L (3.4-5.1); Sodium 139 mMol/L (136-145); Total Protein 7.5 gm/dL (5.7-8.2); eGFR > 60 See Note
[2025-05-10 23:55] LABS: Bacteria,Urine 3+; Bilirubin,Urine Negative (Negative); Blood,Urine Negative (Negative); Clarity,Urine Clear (Clear/Hazy); Color,Urine Lt-Yellow (Lt Yel-Yel); Culture Indicated,Urine Contaminated; Glucose, Urine Negative (Negative); Ketones,Urine Negative (Negative); Leukocyte Esterase,Urine Negative (Negative); Nitrite,Urine Negative (Negative); PH,Urine 7.5 (5.0-7.0); Protein,Urine Negative (Neg - Trace); RBC,Urine 3 /hpf (0-3); Specific Gravity,Urine 1.013 (1.001-1.035); Squamous Epithelial Cell,Urine 13 /hpf (0-5); Urobilinogen,Urine Negative mg/dL (0.0-1.0); WBC,Urine 11 /hpf (0-5)
[2025-05-11 00:14] VITALS: BP 108/68; PULSE 74; RESP 18; O2SAT 100
== END 2025-05-11 00:42 | disposition home or self-care (01) ==
PROVIDERS: Emergency Provider Emergency Medicine
DX: N39.0 Urinary tract infection, site not specified (principal); N83.209 Unspecified ovarian cyst, unspecified side
CPT/HCPCS: 36415; 76856; 80053; 81001; 84702; 85025; 99283; J1885